=== PATIENT | female | born 1985 | race Caucasian/White ===

== ENCOUNTER 2016-09-13 07:12 | Outpatient (CLI) | payer OTHER ==
[~2016-09-13] VITALS: Ht 172.7 cm; Wt 83.5 kg
[~2016-09-13 07:12] MED LIST: BENA25CA2 PO; COLA100C5 PO; IBUP60TA PO; LABE20TAB PO; LAXA5TAB PO; LIDOCAINE 2% INJ 100 MG/5 ML SDV (FOR ANES.) As Ordered ONE; LINZ290C PO; MAXA5TAB10 PO; PROPOFOL 200 MG/20 ML VIAL As Ordered ONE; VITAPRTA PO
[2016-09-13] MEDS ORDERED: NS 1,000 ML IV ONE (07:30)
--- NOTE | 2016-09-13 08:47 | ROOR ---
Patient Name: Lenny Loving Procedure Date: 09/13/2016 8:34 AM Date of : 1985 Age: 30 Room: [facility] Gender: Female Note Status: Finalized Procedure: Upper Endoscopy + Biopsies Indications: Family history of gastric cancer Providers: Bharath Bahena MD Referring MD: KRYSTA CHAPARRO MD Requesting Provider: Medicines: Monitored Anesthesia Care Complications: No immediate complications. Procedure: Pre-Anesthesia Assessment: - The heart rate, respiratory rate, oxygen saturations, blood pressure, adequacy of pulmonary ventilation, and response to care were monitored throughout the procedure. The Endoscope was introduced through the mouth, and advanced to the second part of duodenum. The upper GI endoscopy was accomplished without difficulty. The patient tolerated the procedure well. Findings: The Z-line was regular and was found 40 cm from the incisors. A small hiatal hernia was present. Localized minimal inflammation characterized by congestion (edema) and erythema was found in the gastric antrum. Biopsies were taken with a cold forceps for Helicobacter pylori testing. The exam was otherwise without abnormality. The exam of the duodenum was otherwise normal. Impression: - Z-line regular, 40 cm from the incisors. - Small hiatal hernia. - Chronic gastritis. Biopsied. - The examination was otherwise normal. Recommendation: - Patient has a contact number available for emergencies. The signs and symptoms of potential delayed complications were discussed with the patient. Return to normal activities tomorrow. Written discharge instructions were provided to the patient. - Discharge patient to home. - Continue present medications. - Await pathology results. - Telephone GI clinic for pathology results in 1 week. - Return to referring physician. - Repeat upper endoscopy in 5 years for surveillance based on pathology results. - The findings and recommendations were discussed with the patient's family. Bharath Bahena MD Bharath Bahena MD 09/13/2016 8:47:23 AM This report has been signed electronically. Number of Addenda: 0 Note Initiated On: 09/13/2016 8:34 AM Estimated Blood Loss: Estimated blood loss: none.
--- NOTE | 2016-09-13 09:00 | ROOR ---
Patient Name: Lenny Loving Procedure Date: 09/13/2016 8:34 AM Date of : 1985 Age: 30 Room: [facility] Gender: Female Note Status: Finalized Procedure: Total Colonoscopy to Cecum Indications: Colon cancer screening in patient at increased risk: Colorectal cancer in mother Providers: Bharath Bahena MD Referring MD: KRYSTA CHAPARRO MD Requesting Provider: Medicines: Monitored Anesthesia Care Complications: No immediate complications. Procedure: Pre-Anesthesia Assessment: - The heart rate, respiratory rate, oxygen saturations, blood pressure, adequacy of pulmonary ventilation, and response to care were monitored throughout the procedure. The Colonoscope was introduced through the anus and advanced to the cecum, identified by appendiceal orifice and ileocecal valve. The colonoscopy was performed without difficulty. The patient tolerated the procedure well. The quality of the bowel preparation was excellent. Findings: The perianal and digital rectal examinations were normal. Non-bleeding internal hemorrhoids were found during retroflexion. The hemorrhoids were small and Grade I (internal hemorrhoids that do not prolapse). No other significant abnormalities were identified in a careful examination of the remainder of the colon. The exam was otherwise without abnormality on direct and retroflexion views. Impression: - Non-bleeding internal hemorrhoids. - The examination was otherwise normal on direct and retroflexion views. - No specimens collected. - The exam was otherwise normal to the cecum. Recommendation: - Patient has a contact number available for emergencies. The signs and symptoms of potential delayed complications were discussed with the patient. Return to normal activities tomorrow. Written discharge instructions were provided to the patient. - High fiber diet. - Discharge patient to home. - Continue present medications. - Repeat colonoscopy in 5 years for screening purposes. - Return to referring physician. - The findings and recommendations were discussed with the patient's family. Bharath Bahena MD Bharath Bahena MD 09/13/2016 8:59:54 AM This report has been signed electronically. Number of Addenda: 0 Note Initiated On: 09/13/2016 8:34 AM Estimated Blood Loss: Estimated blood loss: none.
[2016-09-13 09:35] VITALS: BP 154/94
== END 2016-09-13 09:46 | disposition home or self-care (01) ==
LOC: M OPP 07:12
PROVIDERS: ATTEND Internal Medicine Gastroenterology
DX: Z12.11 Encounter for screening for malignant neoplasm of colon (principal); Z80.0 Family history of malignant neoplasm of digestive organs; K64.0 First degree hemorrhoids; K44.9 Diaphragmatic hernia without obstruction or gangrene; K29.70 Gastritis, unspecified, without bleeding; K59.00 Constipation, unspecified; G43.909 Migraine, unspecified, not intractable, without status migrainosus; F17.210 Nicotine dependence, cigarettes, uncomplicated; Z88.2 Allergy status to sulfonamides; Z88.1 Allergy status to other antibiotic agents; Z91.048 Other nonmedicinal substance allergy status; Z79.899 Other long term (current) drug therapy
CPT/HCPCS: 43239; 88305; G0105

== ENCOUNTER → 2016-09-14 | Outpatient (REF) | payer OTHER ==
[~2016-09-14] MED LIST changes: -LIDOCAINE 2% INJ 100 MG/5 ML SDV (FOR ANES.) As Ordered ONE; -PROPOFOL 200 MG/20 ML VIAL As Ordered ONE
== END ==
LOC: M SFHCLERA 17:28
PROVIDERS: ATTEND Nurse Practitioner Family
DX: J02.9 Acute pharyngitis, unspecified (principal)

== ENCOUNTER → 2016-09-18 | Outpatient (REF) | payer OTHER | LOC: M SFHCLERA 13:33 | PROVIDERS: ATTEND Nurse Practitioner Family | DX: J02.9 Acute pharyngitis, unspecified (principal) ==

== ENCOUNTER → 2016-12-27 | Outpatient (REF) | payer OTHER | LOC: M SFHCLERA 16:56 | PROVIDERS: ATTEND Nurse Practitioner Family | DX: J02.9 Acute pharyngitis, unspecified (principal) ==

== ENCOUNTER → 2017-03-02 | Outpatient (REF) | payer OTHER | LOC: M SFHCLERA 20:08 | DX: J02.9 Acute pharyngitis, unspecified (principal) ==